=== PATIENT | female | born 1970 | race Caucasian/White ===

== ENCOUNTER 2019-12-09 09:19 | Emergency (ER) | payer OTHER, SELFPAY ==
[2019-12-09 09:25] VITALS: BP 145/93; PULSE 85; RESP 16; TEMP 36.4; O2SAT 100
--- NOTE | 2019-12-09 09:26 | ED.GENADULT ---
HPI - General Adult General Chief complaint: Wound/Laceration Stated complaint: rt hand middle finger laceration Time Seen by Provider: 12/09/19 09:26 Source: patient Mode of arrival: ambulatory Limitations: no limitations History of Present Illness HPI narrative: 49-year-old female patient presents to the [facility] with complaints of laceration of the right middle finger. Patient states that she was pulling on a drawer with a broken piece of glass and cut her right middle finger. Patient denies any numbness and tingling to the finger. Patient unaware of when her last tetanus shot was. Patient denies any foreign body to the laceration. Patient states she did clean it with just some water at home but denies any soap or peroxide. Related Data Home Medications Medication Instructions Recorded Confirmed venlafaxine 12/09/19 Allergies Allergy/AdvReac Type Severity Reaction Status Date / Time No Known Allergies Verified 07/01/09 09:15 NKDA,NKFA Allergy Unknown Uncoded 10/16/06 14:18 Review of Systems Review of Systems: Narrative: CONSTITUTIONAL: Denies fever, chills, or sweats. EYES: Denies visual changes, redness, or discharge. ENT: Denies rhinorrhea, congestion, sore throat, or otalgia. CARDIOVASCULAR: Denies chest pain, palpitations, or edema. RESPIRATORY: Denies cough or dyspnea. GASTROINTESTINAL: Denies abdominal pain, nausea, vomiting, or diarrhea. GENITOURINARY: Denies dysuria or hematuria. SKIN: Denies rash or itching. Positive laceration right middle finger MUSCULOSKELETAL: Denies back pain, joint pain, or myalgia. NEUROLOGIC: Denies headache, numbness, or weakness. PSYCHIATRIC: Denies anxiety or depression. FORMERLY [facility] Past Medical History Medical History (Updated 12/09/19 @ 09:45 by CHRISTY Mackey) Anemia Surgical History Surgical History (Updated 12/09/19 @ 09:28 by CHRISTY Mackey) Delivery by section H/O dilation and curettage Family History Family History (Updated 12/09/19 @ 09:29 by CHRISTY Mackey) Father Family history of malignant melanoma Other Hypertension Social History Social History Smoking status: Never smoker Alcohol intake: current Comments At the time of my signature I agree with nursing past medical history, surgical, social, and family history. There is no relevant family history pertinent to the presenting complaint. Exam Narrative: Exam Narrative: GENERAL: Well-appearing, well-nourished, and in no acute distress. HEAD: Normocephalic, atraumatic. EYES: PERRLA and EOMI. ENT: Nares clear, no rhinorrhea or epistaxis. Mucous membranes moist. NECK: Supple. No lymphadenopathy CHEST: Clear to auscultation. No respiratory distress. HEART: Regular rate and rhythm. No murmur heard. Normal peripheral pulses. ABDOMEN: Soft, nontender, nondistended, normal active bowel sounds. EXTREMITIES: Normal range of motion. No edema. SKIN: Warm, dry, no rash. Patient has approximately 4 cm laceration in a J-shaped located to the lateral side of the right middle finger between the DIP and PIP joints. There is no laceration that goes over the joint area. Patient has excellent range of motion to the finger. Good cap refill to the distal portion of the finger and good sensation. There is a flap noted to the area and is well approximated. No deep laceration noted at this time. NEURO: No focal deficits. Alert and oriented x3. Course Vital Signs Vital signs: Vital Signs Temperature 36.4 C L 12/09/19 09:25 Pulse Rate 85 12/09/19 09:25 Respiratory Rate 16 12/09/19 09:25 Blood Pressure 145/93 H 12/09/19 09:25 Pulse Oximetry 100 12/09/19 09:25 Temperature 36.4 C L 12/09/19 09:25 Pulse Rate 85 12/09/19 09:25 Respiratory Rate 16 12/09/19 09:25 Blood Pressure 145/93 H 12/09/19 09:25 Pulse Oximetry 100 12/09/19 09:25 Vital signs reviewed The patient has been informed that
[2019-12-09] MEDS: TETANUS,DIPHTHERIA,AC PERTUSSIS ADULT (0.5 ML) BOOSTRIX IM (09:37)
== END 2019-12-09 09:57 | disposition home or self-care (01) ==
PROVIDERS: Emergency Provider Nurse Practitioner Family; PCP Internal Medicine
DX: S61.212A Laceration without foreign body of right middle finger without damage to nail, initial encounter (principal); W25.XXXA Contact with sharp glass, initial encounter; Z23 Encounter for immunization
CPT/HCPCS: 12002; 90471; 90715; 99202; G0463

== ENCOUNTER 2023-03-09 07:18 | Outpatient (CLI) | payer OTHER, SELFPAY ==
--- NOTE | ~2023-03-09 | MM_ITS ---
EXAMINATION: MM screening nabeel BI w christopher HISTORY: Screening TECHNIQUE: Craniocaudal and mediolateral oblique 3-D tomosynthesis images were obtained and synthetic 2-D images were generated. CAD analysis was submitted and interpreted. COMPARISON: 01/15/2016 BREAST PARENCHYMAL COMPOSITION: Not Dense: Breast are almost entirely fatty. FINDINGS: There is no evidence of suspicious mass, calcification, or architectural distortion to sugg est malignancy in either breast. There has been no suspicious interval change. IMPRESSION: 1. No mammographic evidence of malignancy. 2. Recommend routine screening mammography in one year. BI-RADS Category 1: Negative Reviewed, dictated and finalized at location A. RAL TECHNICIAN
== END 2023-03-09 07:19 | disposition home or self-care (01) ==
LOC: ANHIMG 07:19
PROVIDERS: PCP Internal Medicine; Visit Provider Obstetrics & Gynecology
DX: Z12.31 Encounter for screening mammogram for malignant neoplasm of breast (principal)
CPT/HCPCS: 77063; 77067

== ENCOUNTER 2023-10-16 15:56 | Outpatient (CLI) | payer OTHER, SELFPAY ==
--- NOTE | ~2023-10-16 | XR_ITS ---
[id number] Ordering provider: Cruz Luciano, History: . RADICULOPATHY . Comparison: None. FINDINGS: VERTEBRAL BODIES: Normal height and alignment. No visible fracture or subluxation. The dens is intact . DISK SPACES: Narrowing of the disc C5-C6 and C6-C7. Uncovertebral joint osteoarthritic changes at the level of C6-C7. PARASPINOUS SOFT TISSUES: No prevertebral soft tissue swelling. IMPRESSION: No acute osseous abnormality cervical spine. Degenerative disc disease at the level of C5-C6 and C6-C7. Reviewed, dictated and finalized at location A.
--- NOTE | ~2023-10-16 | XR_ITS ---
3 VIEWS LUMBAR SPINE Ordering provider: Cruz Luciano, History: . RADICULOPATHY . Comparison: None. FINDINGS: VERTEBRAL BODIES: No visible fracture or subluxation. DISK SPACES: Narrowing of the disc L5-S1 and L2-L3. Multilevel facet joint disease. SOFT TISSUES: Normal. IMPRESSION: No acute osseous abnormality lumbar spine. Degenerative disc disease at the level of L2-L3 and L5-S1. Reviewed, dictated and finalized at location A.
== END 2023-10-16 15:57 | disposition home or self-care (01) ==
PROVIDERS: PCP Internal Medicine; Visit Provider Internal Medicine
DX: M50.322 Other cervical disc degeneration at C5-C6 level (principal); M50.323 Other cervical disc degeneration at C6-C7 level; M51.36 Other intervertebral disc degeneration, lumbar region; M51.37 Other intervertebral disc degeneration, lumbosacral region
CPT/HCPCS: 72040; 72100

== ENCOUNTER 2024-04-05 14:53 | Outpatient (CLI) | payer OTHER, SELFPAY | END 2024-04-05 14:54 | disposition home or self-care (01) | LOC: MICIMG 14:56 | PROVIDERS: PCP Internal Medicine; Visit Provider Internal Medicine | DX: M47.816 Spondylosis without myelopathy or radiculopathy, lumbar region (principal) | CPT/HCPCS: 72148 ==